=== PATIENT | female | born 1975 | race Caucasian/White ===

== ENCOUNTER 2018-06-27 20:45 | Inpatient (IN) | payer BC ==
[2018-06-27] MEDS ORDERED: OXYTOCIN 30 UNITS in 0.9% NS 30 UNIT/500 ML INFUS.BAG IVPB ONE (21:14)
--- NOTE | 2018-06-27 21:28 | HP ---
Past Medical History - Primary Care Physician PCP:: Mago Baron - Admission Chief Complaint: 43yo P0 @ 40.3wks with LOF, brown in color, at 8pm. + FM, no VB, some cramping History of Present Illness: 1. AMA 2. Factor V liden - was on ASA early in 3. 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 Pituitary microadenoma - off Cabergoline, early in History Source: Patient, Medical Record Limitations to Obtaining History: No Limitations - Past Medical History ...: 2 ...Spon : 1 ... Weeks Gestation by Dates: 40.3 ...EDC by Dates: 06/24/18 Heme/Onc: Yes: Other (Factor V Leiden Heterozygous, no VTE/DVT) - Past Surgical History Past Surgical History: Yes: None Hx Myomectomy: No Hx Transabdominal Cerclage: No - Smoking History Smoking history: Never smoked Have you smoked in the past 12 months: No - Alcohol/Substance Use Hx Alcohol Use: Yes (SOCIALLY) History of Substance Use: reports: None - Social History Usual Living Arrangement: Yes: With Spouse Occupation: Teacher History of Recent Travel: No Home Medications - Allergies Allergies/Adverse Reactions: Allergies Allergy/AdvReac Type Severity Reaction Status Date / Time Penicillins Allergy Intermediate Verified 06/27/18 23:26 - Home Medications Home Medications: Ambulatory Orders Pnv,Calcium 72/Iron/Folic Acid [ Plus Tablet] 1 each PO DAILY 06/07/18 Vit D3/Folic Acid/B2/B6/B12 [Folgard Tablet] 1 each PO DAILY 06/07/18 Review of Systems - Review of Systems Constitutional: reports: No Symptoms Eyes: reports: No Symptoms HENT: reports: No Symptoms Neck: reports: No Symptoms Cardiovascular: reports: No Symptoms Respiratory: reports: No Symptoms Gastrointestinal: reports: No Symptoms Genitourinary: reports: No Symptoms Breasts: reports: No Symptoms Reported Musculoskeletal: reports: No Symptoms Integumentary: reports: No Symptoms Neurological: reports: No Symptoms Endocrine: reports: No Symptoms Hematology/Lymphatic: reports: No Symptoms Psychiatric: reports: No Symptoms Pain Intensity: 0 Physical Exam - Maternity Constitutional: Yes: Well Nourished, No Distress, Calm Eyes: Yes: WNL, Conjunctiva Clear, EOM Intact HENT: Yes: WNL, Atraumatic, Normocephalic Neck: Yes: WNL, Supple, Trachea Midline Cardiovascular: Yes: WNL, Regular Rate and Rhythm Lungs: Clear to auscultation Breast(s): Yes: WNL - Abdominal Exam/OB Fundal Height: 40 (EFW - 3500gm) Number of Fetuses: Single Presentation: Vertex Contractions: No Regularity: Irritability Monitor Mode: External Heart Rate (range): 140, + accels, no decels Heart Rate Location: Midline Category: I Accelerations: Uniform Decelerations: None - Vaginal Exam/OB Vaginal Bleediing: No Speculum Exam: No (Adequate pelvis) Dilatation (cm): 1-2 Effacement (%): 50% Amniotic Membrane Status: Ruptured Nitrazine Test: Positive Amniotic Fluid: Yes: Meconium Stained Meconium: Moderate Presentation: Vertex/Position Station: -3 - Physical Exam Musculoskeletal: Yes: WNL Extremities: Yes: WNL Edema: No Integumentary: Yes: WNL ...Motor Strength: WNL Psychiatric: Yes: WNL, Alert, Oriented Assessment/Plan 43yo P0 @ 40.3wks with PROM not in labor with mod. meconium MF status reassuring will start Pitocin Induction Pain management discussed, she would be interested in pain medication All findings and plan discussed with patient and will attempt vaginal delivery as long as status reassuring Will ask Neonatalogy at delivery
[2018-06-27 21:45] LABS: BASO % 0.5 % (0-2.0); EOS % 0.7 % (0-4.5); HEMATOCRIT 38.8 % (32.4-45.2); HEMOGLOBIN 13.2 GM/dL (10.7-15.3); LYMPH % 13.8 % (8-40); MCH 32.1 pg (25.7-33.7); MCHC 34.1 g/dl (32.0-36.0); MEAN CELL VOLUME 93.9 fl (80-96); MEAN PLT VOLUME 9.8 fl (7.5-11.1); MONO % 9.4 % (3.8-10.2); NEUT % 75.6 % (42.8-82.8); PLATELET COUNT 153 K/MM3 (134-434); RBC 4.13 M/mm3 (3.60-5.2); RDW 14.4 % (11.6-15.6); WHITE BLOOD COUNT 11.3 K/mm3 (4.0-10.0)
[2018-06-27] MEDS ORDERED: PROMETHAZINE HCL 25 MG/1 ML VIAL IVPUSH ONE (21:58)
[2018-06-27] MEDS ORDERED: BUTORPHANOL TARTRATE 1 MG/ML VIAL IVPB ONE (21:58)
[2018-06-27] MEDS ORDERED: ELECTROLYTE-148 SOLN 1,000 ML IV SCH (22:00)
[2018-06-27 22:05] LABS: INR 0.97 (0.83-1.09)
[2018-06-27 22:15] LABS: ANION GAP 11 MMOL/L (8-16); BLOOD UREA NITROGEN 11 mg/dL (7-18); CHLORIDE 107 mmol/L (98-107); CO2 20 mmol/L (21-32); CREATININE 0.3 mg/dL (0.55-1.02); GLUCOSE,RANDOM 86 mg/dL (74-106); POTASSIUM 3.8 mmol/L (3.5-5.1); SODIUM 138 mmol/L (136-145)
[2018-06-27] MEDS ORDERED: OXYTOCIN 30 UNITS in 0.9% NS 30 UNIT/500 ML INFUS.BAG IVPB SCH (22:15)
[2018-06-27 23:12] VITALS: BMI 31.8
[2018-06-28] MEDS ORDERED: PROMETHAZINE HCL 25 MG/1 ML VIAL ONE (02:38)
[2018-06-28] MEDS ORDERED: BUTORPHANOL TARTRATE 1 MG/ML VIAL ONE ×2 (02:38)
[2018-06-28] MEDS ORDERED: FENTANYL/BUPIVACAINE/NS/PF - PCEA - 50 ML DISP.SYRIN EP ONE ×2 (05:30→10:37)
--- NOTE | 2018-06-28 05:32 | PN ---
Progress Note, Labor Vaginal Exam #1 Labor Exam Date: 06/28/18 Labor Exam Time: 05:20 Heart Rate (range): 150's + accels, no decels, adequate pelvis Dilatation: 4cm Effacement (%): 90 Amniotic Membrane Status: Ruptured Presentation: Vertex/Position Station: -2 (EFW 3500gm) Remarks: FHR Category 1, desiring epidural, anesthesia is called
[2018-06-28] MEDS ORDERED: BUPIVACAINE HCL/PF 0.25% (2.5MG/ML) 10 ML VIAL ONE (05:40)
[2018-06-28] MEDS ORDERED: NALOXONE HCL 0.4 MG/ML VIAL IVPUSH PRN (06:10)
[2018-06-28] MEDS ORDERED: FENTANYL/BUPIVACAINE/NS/PF - PCEA - 50 ML DISP.SYRIN EP SCH (06:15)
--- NOTE | 2018-06-28 10:07 | PN ---
Ante-Partal Exam - Subjective Subjective: Pt w/o complaints, w/epidural. Pit at 11 Vital Signs: Vital Signs Temperature 98.9 F 06/28/18 09:15 Pulse Rate 109 H 06/28/18 09:00 Respiratory Rate 18 06/28/18 09:00 Blood Pressure 113/74 06/28/18 09:00 O2 Sat by Pulse Oximetry (%) 97 06/28/18 09:00 Bleeding: No Headache: No Visual changes: No Right upper quadrant pain: No Pain (scale 1-10): 0 - Contractions Contractions: Yes Regularity: Regular Monitor Mode: External - Exam during Labor Heart Rate: 140 Variability: Moderate Heart Rate Location: Midline Category: II Monitor Accelerations: Present Monitor Decelerations: Variable (occasional) Exam: Vaginal Dilatation (cm): 9 Effacement (%): 100 Amniotic Membrane Status: Leaking Meconium Staining: Moderate Presentation: Vertex Station: 0 - Intrapartum Hemorrhage Risk Medium Risk Factors: None High Risk Factors: None Risk Score: 0 Risk Level: Low Risk - Assessment/Plan Assessment/Plan: 43 yo in active labor, progressing. Fetus requires no intervention. Monitor progress
[2018-06-28] MEDS ORDERED: ACETAMINOPHEN INJECTION 100 ML IVPB ONE (12:13)
[2018-06-28] MEDS ORDERED: ACETAMINOPHEN 1000 MG/100 ML VIAL (NON FORMULARY) IVPB ONE (12:15)
[2018-06-28] MEDS ORDERED: OXYTOCIN 20 UNITS in 0.9% NS 20 UNIT/1,000 ML INFUS.BAG IV ONE ×2 (12:19→19:40)
[2018-06-28] MEDS ORDERED: LIDOCAINE HCL 1% PRESERVATIVE FREE - 30ML VIAL ONE (12:19)
[2018-06-28] MEDS ORDERED: VANCOMYCIN 1,000 MG in DEXTROSE 5%-WATER - 250 ML IVPB ONE (12:30)
--- NOTE | 2018-06-28 13:09 | PN ---
Ante-Partal Exam - Subjective Subjective: No complaints. She does not feel contractions and pushing ineffectively. Vital Signs: Vital Signs Temperature 101.1 F H 06/28/18 12:05 Pulse Rate 116 H 06/28/18 12:00 Respiratory Rate 06/28/18 12:00 Blood Pressure 114/70 06/28/18 12:00 O2 Sat by Pulse Oximetry (%) 96 06/28/18 12:00 Bleeding: No Headache: No Right upper quadrant pain: No Pain (scale 1-10): 0 - Contractions Contractions: Yes Regularity: Regular Intensity: Moderate Monitor Mode: External - Exam during Labor Heart Rate: 175 Variability: Moderate Heart Rate Location: Midline Category: II (Tachcardia due to chorio) Monitor Accelerations: Absent Monitor Decelerations: None Exam: Vaginal Dilatation (cm): 10 Effacement (%): 100 Amniotic Membrane Status: Leaking Meconium Staining: Moderate Presentation: Vertex Station: +1 Remarks: Adequate pelvimetry - Intrapartum Hemorrhage Risk Medium Risk Factors: Chorioamniomitis High Risk Factors: None Risk Score: 1 Risk Level: Medium Risk - Assessment/Plan Assessment/Plan: 43yo P0 with at EGA 40w 5d in second stage of labor. 1. Fetus with tachycardia due to chorio but o/w does not need intervention. Tylenol IV given. Abx are running 2. Chorio. Neonatology to delivery 3. Labor. Pt is unable to push since she feels no pain, contractions, or urge to push. Epidural was turned off. Plan to start pushing again 4. Patient. Fever and tachycardia due to chorio; o/w no issues. Continue Abx
[2018-06-28] MEDS ORDERED: GENTAMICIN 100 MG/100 ML BAG IVPB ONE (13:15)
[2018-06-28] MEDS ORDERED: CLINDAMYCIN 900 MG PREMIX IVPB 900 MG/50 ML BAG IVPB ONE (13:15)
[2018-06-28] MEDS ORDERED: CLINDAMYCIN PHOSPHATE 600 MG/4 ML VIAL ONE (14:06)
[2018-06-28] MEDS ORDERED: morphine SULFATE/Preservative Free 0.5 MG/ML (1cc Syringe) ONE (17:51)
[2018-06-28] MEDS ORDERED: PHENYLEPHRINE HCL 10 MG/1 ML SINGLE DOSE VIAL ONE (18:06)
[2018-06-28] MEDS ORDERED: OXYTOCIN 10 UNITS/ML VIAL ONE ×2 (18:19→18:45)
[2018-06-28] MEDS ORDERED: MIDAZOLAM HCL 2 MG/2 ML SINGLE DOSE VIAL ONE ×2 (18:35→18:51)
[2018-06-28] MEDS ORDERED: MEPERIDINE HCL CARPU-JECT 25 MG/1 ML DISP.SYRIN ONE (18:36)
[2018-06-28] MEDS ORDERED: ONDANSETRON 4 MG/2 ML VIAL IVPUSH PRN (18:44)
[2018-06-28] MEDS ORDERED: KETOROLAC TROMETHAMINE 30 MG/1 ML VIAL ONE (18:48)
[2018-06-28 18:56] LABS: VENOUS PC02 40.5 mmHg (38-52); VENOUS PH 7.27 (7.32-7.42); VENOUS PO2 25.9 mmHg (28-48)
[2018-06-28] MEDS ORDERED: morphine SULFATE/Preservative Free 0.5 MG/ML (1cc Syringe) EP ONE (19:00)
[2018-06-28] MEDS ORDERED: BENZOCAINE 28 GM HEMORRHOIDAL OINTMENT TP PRN (19:36)
[2018-06-28] MEDS ORDERED: WITCH HAZEL 50% (TUCKS) 40 PAD/JAR PAD TP PRN (19:36)
[2018-06-28] MEDS ORDERED: METHYLERGONOVINE MALEATE 0.2 MG/1 ML AMP IM PRN (19:36)
[2018-06-28] MEDS ORDERED: BENZOCAINE 20% 57 GM BOTTLE TP PRN (19:36)
[2018-06-28] MEDS ORDERED: IBUPROFEN 800 MG/8 ML IJ IVPB PRN (19:36)
--- NOTE | 2018-06-28 19:36 | OP ---
Operative Note - Note: Operative Date: 06/28/18 Pre-Operative Diagnosis: Arrest of descent. AMA. Chorioamnitis Operation: Primary LT C/S Findings: Live baby girl in vtx presentation. Meconium in amniotic fluid. 9/9. Wt 8lb 4oz. Normal uterus, ovaries, tubes. Post-Operative Diagnosis: Same as Pre-op Surgeon: Puma Monge Model Technician: Eleno Covarrubias Anesthesiologist/LAUNDRY FOLDER: Power Kelley Anesthesia: Spinal Specimens Removed: Placenta Estimated Blood Loss (mls): 1,000 Drains & Tubes with Location: Albert Cath Drains, Volume Out (mls): 100 Blood Volume Replaced (mls): 0 Fluid Volume Replaced (mls): 2,500 Operative Report Dictated: Yes
[2018-06-28] MEDS ORDERED: CITRIC ACID/SODIUM CITRATE 30 ML UNIT-DOSE CUP PO ONE (19:45)
[2018-06-28] MEDS ORDERED: OXYTOCIN 20 UNITS in 0.9% NS 20 UNIT/1,000 ML INFUS.BAG IV SCH (20:00)
[2018-06-28 20:47] LABS: HEMATOCRIT 35.4 % (32.4-45.2); HEMOGLOBIN 11.9 GM/dL (10.7-15.3); MCHC 33.7 g/dl (32.0-36.0); MEAN CELL VOLUME 94.9 fl (80-96); MEAN PLT VOLUME 9.7 fl (7.5-11.1); PLATELET COUNT 131 K/MM3 (134-434); RBC 3.73 M/mm3 (3.60-5.2); RDW 14.4 % (11.6-15.6); WHITE BLOOD COUNT 22.7 K/mm3 (4.0-10.0)
--- NOTE | 2018-06-28 21:02 | PN ---
Post Progress Note - Subjective Subjective: Heavy vaginal bleeding noted in Recovery Rm. The pt is asymptomatic. Post Day: 0 Type of Delivery: Primary C/S Vital Signs: Vital Signs Temperature 98.9 F 06/28/18 19:35 Pulse Rate 116 H 06/28/18 20:20 Respiratory Rate 18 06/28/18 20:20 Blood Pressure 109/66 06/28/18 20:20 O2 Sat by Pulse Oximetry (%) 99 06/28/18 20:20 Uterus: Yes: Fundus above umbilicus, Other (Uterine Atony) Incision: Yes: Dressing dry and intact Abdomen/GI: Yes: Abdomen soft Lochia, amount: Heavy Extremities: Yes: Calves non-tender Perineum: Yes: Intact Activity: Other (Bedrest) - Labs Labs: CBC WBC 22.7 K/mm3 (4.0-10.0) H 06/28/18 20:10 RBC 3.73 M/mm3 (3.60-5.2) 06/28/18 20:10 Hgb 11.9 GM/dL (10.7-15.3) 06/28/18 20:10 Hct 35.4 % (32.4-45.2) 06/28/18 20:10 MCV 94.9 fl (80-96) 06/28/18 20:10 MCH 32.0 pg (25.7-33.7) 06/28/18 20:10 MCHC 33.7 g/dl (32.0-36.0) 06/28/18 20:10 RDW 14.4 % (11.6-15.6) 06/28/18 20:10 Plt Count 131 K/MM3 (134-434) L 06/28/18 20:10 MPV 9.7 fl (7.5-11.1) 06/28/18 20:10 Absolute Neuts (auto) 8.5 K/mm3 (1.5-8.0) H 06/27/18 21:20 Neutrophils % 75.6 % (42.8-82.8) D 06/27/18 21:20 Lymphocytes % 13.8 % (8-40) D 06/27/18 21:20 Monocytes % 9.4 % (3.8-10.2) 06/27/18 21:20 Eosinophils % 0.7 % (0-4.5) D 06/27/18 21:20 Basophils % 0.5 % (0-2.0) 06/27/18 21:20 Nucleated RBC % 0 % (0-0) 06/27/18 21:20 Other Findings, Remarks: Pt with uterine atony. Pt with Tachycardia but is o/w stable. Bimanual uterine massage done and ~100ml of clots evacuated. The uterus noted to be firm after the bimanual massage and hemostasis improved. The pt was given Methergine IM x 1. The CBC was sent earlier and the results were reviewed. Plan to monitor bleeding and VS
[2018-06-28 21:17] LABS: ALBUMIN 2.2 g/dl (3.4-5.0); ALK PHOS 110 U/L (45-117); ANION GAP 14 MMOL/L (8-16); BILIRUBIN,TOTAL 2.2 mg/dL (0.2-1.0); BLOOD UREA NITROGEN 9 mg/dL (7-18); CALCIUM 7.9 mg/dL (8.5-10.1); CHLORIDE 109 mmol/L (98-107); CO2 15 mmol/L (21-32); CREATININE 0.5 mg/dL (0.55-1.02); GLUCOSE,RANDOM 119 mg/dL (74-106); POTASSIUM 3.3 mmol/L (3.5-5.1); SGOT/AST 27 U/L (15-37); SGPT/ALT 44 U/L (12-78); SODIUM 138 mmol/L (136-145); TOT PROT 4.9 g/dl (6.4-8.2)
[2018-06-28] MEDS: CLINDAMYCIN 900 MG PREMIX IVPB 900 MG/50 ML BAG IVPB SCH (22:03)
[2018-06-29 00:19] LABS: BASO % 0.1 % (0-2.0); HEMATOCRIT 32.9 % (32.4-45.2); HEMOGLOBIN 11.2 GM/dL (10.7-15.3); LYMPH % 2.2 % (8-40); MCH 32.3 pg (25.7-33.7); MCHC 34.1 g/dl (32.0-36.0); MEAN CELL VOLUME 94.6 fl (80-96); MEAN PLT VOLUME 9.2 fl (7.5-11.1); MONO % 8.6 % (3.8-10.2); NEUT % 89.1 % (42.8-82.8); PLATELET COUNT 141 K/MM3 (134-434); RBC 3.47 M/mm3 (3.60-5.2); RDW 14.5 % (11.6-15.6); WHITE BLOOD COUNT 25.1 K/mm3 (4.0-10.0)
[2018-06-29] MEDS: VANCOMYCIN 1,000 MG in DEXTROSE 5%-WATER - 250 ML IVPB SCH ×2 (00:50→12:55)
[2018-06-29 01:03] LABS: PLATELET ESTIMATE SLT DECREASE
--- NOTE | 2018-06-29 01:38 | OP ---
DATE OF OPERATION: 06/28/2018 PREOPERATIVE DIAGNOSIS: at estimated gestational age of 40 weeks 5 days, arrest of descent, advanced maternal age, chorioamnionitis. POSTOPERATIVE DIAGNOSIS: at estimated gestational age of 40 weeks 5 days, arrest of descent, advanced maternal age, chorioamnionitis, delivered. PROCEDURE: Primary low transverse section via Pfannenstiel skin incision. SURGEON: Puma Monge MD BRANCH LENDING OFFICER: Eleno Covarrubias MD ANESTHESIA: Spinal. ANESTHESIOLOGIST: Lex Kelley MD COMPLICATIONS: None. ESTIMATED BLOOD LOSS: 1000 mL. INTRAVENOUS FLUIDS: 2500 mL of Crystalloid. URINE OUTPUT: 100 mL of dark blood-tinged urine. PATHOLOGY: Placenta. FINDINGS: Live baby girl in vertex presentation. Meconium was noted in amniotic fluid. Apgars are 9 and 9. Baby's weight is 8 pounds 4 ounces. Normal uterus, ovaries, and fallopian tubes were noted bilaterally. PROCEDURE: The patient was met preoperatively. Risks, benefits, and alternatives of surgery were discussed in detail. All questions were answered. The patient was brought to the OR with IV running. She was placed on the surgical table in the sitting position. The spinal anesthesia was achieved without difficulty. The patient was then placed on a surgical table with a leftward tilt. The Albert catheter was left to drain to gravity. The patient was prepped and draped in the usual sterile fashion. A Pfannenstiel skin incision was made with the knife approximately 2 cm above the pubic symphysis. The incision was extended to the level of fascia. The fascia was incised in the midline and the incision was extended bilaterally using Huitron scissors. The fascia was dissected away from the rectus muscles superiorly and inferiorly. The rectus muscles were in the midline using blunt dissection. The peritoneum was identified and entered sharply. The peritoneal incision was extended superiorly and inferiorly using Metzenbaum scissors. The bladder was identified and the bladder peritoneum was incised in the area of low transverse uterine segment. The bladder was dissected away from the uterine segment and reflected downwards. The lower uterine segment was incised transversely and the incision was extended bilaterally using bandage scissors. The baby was delivered from the vertex presentation without complications. The umbilical cord was clamped and cut. The baby was crying spontaneously. Live baby girl was handed to the awaiting still operator helper. A segment of the umbilical cord was secured for umbilical cord blood gasses. The placenta was expressed manually from the uterus without complications. The placenta was sent to Pathology. The uterus was cleared of all clots and debris using laparotomy laps. The uterine incision was repaired using a 0 Biosyn suture with a running locking stitch. Good hemostasis was noted. The uterine incision was then imbricated using a 0 Biosyn suture with good hemostasis and approximation. Uterine atony was noted intraoperatively and the uterus was massaged and contracted well. As a result of uterine atony, excessive bleeding was encountered during the closure of the uterine incision. However, once the incision was closed, good hemostasis was noted. The uterus was once again observed to be well contracted. The bladder peritoneum was reapproximated using a 0 Biosyn suture. The gutters were cleared of all clots and debris. The operative site was irrigated using copious amounts of normal saline. Once the saline was aspirated, good hemostasis was confirmed. The abdominal peritoneum was then repaired using a 2-0 chromic suture. The rectus muscles were approximated in the midline using several interrupted 2-0 chromic sutures. The fascia was closed using a 0 Vicryl suture with a running stitch in 2 segments. The subcutaneous adipose tissues and Steven fascia were approximated using several interrupted 0 Vicryl sutures. The skin was closed using a 4-0 Vicryl suture with the subcutaneous stitch. Sponge, lap, and needle counts were correct. The patient tolerated the procedure well. Once again, uterine atony was noted before transferring the patient into the recovery room. The uterus was massaged. Some blood clots were expressed and the uterus was noted to be firm. At that point, the patient was transferred to the recovery room, awake, and in stable condition. Giulia [id number]
[2018-06-29] MEDS: CLINDAMYCIN 900 MG PREMIX IVPB 900 MG/50 ML BAG IVPB SCH ×3 (02:59→17:07)
[2018-06-29] MEDS: GENTAMICIN INJECTION 100 MG in DEXTROSE 5%-WATER - 100 ML IVPB SCH ×3 (03:39→18:08)
[2018-06-29 08:07] LABS: BASO % 0.1 % (0-2.0); HEMATOCRIT 29.2 % (32.4-45.2); HEMOGLOBIN 9.9 GM/dL (10.7-15.3); LYMPH % 3.5 % (8-40); MCH 31.6 pg (25.7-33.7); MCHC 33.8 g/dl (32.0-36.0); MEAN CELL VOLUME 93.5 fl (80-96); MEAN PLT VOLUME 8.9 fl (7.5-11.1); MONO % 10.2 % (3.8-10.2); NEUT % 86.2 % (42.8-82.8); PLATELET COUNT 131 K/MM3 (134-434); RBC 3.12 M/mm3 (3.60-5.2); RDW 14.6 % (11.6-15.6); WHITE BLOOD COUNT 25.8 K/mm3 (4.0-10.0)
--- NOTE | 2018-06-29 09:02 | PN ---
Post Progress Note - Subjective Subjective: No complaints, feels well, no fever or chills Post Day: 1 Type of Delivery: Primary C/S Vital Signs: Vital Signs Temperature 97.8 F 06/29/18 06:00 Pulse Rate 101 H 06/29/18 06:00 Respiratory Rate 20 06/29/18 06:00 Blood Pressure 93/50 06/29/18 06:00 O2 Sat by Pulse Oximetry (%) 99 06/28/18 20:20 Breast Exam: Yes: Soft Uterus: Yes: Fundus Firm, Fundus @ umbilicus, Non-tender Incision: Yes: Dressing dry and intact Abdomen/GI: Yes: Abdomen soft, Tolerating PO (fluids) Lochia: Yes: Rubra Lochia, amount: Small Extremities: Yes: Calves non-tender Perineum: Yes: Intact (swollen) Activity: Other (in bed) - Labs Labs: CBC WBC 25.8 K/mm3 (4.0-10.0) H 06/29/18 07:15 RBC 3.12 M/mm3 (3.60-5.2) L 06/29/18 07:15 Hgb 9.9 GM/dL (10.7-15.3) L 06/29/18 07:15 Hct 29.2 % (32.4-45.2) L 06/29/18 07:15 MCV 93.5 fl (80-96) 06/29/18 07:15 MCH 31.6 pg (25.7-33.7) 06/29/18 07:15 MCHC 33.8 g/dl (32.0-36.0) 06/29/18 07:15 RDW 14.6 % (11.6-15.6) 06/29/18 07:15 Plt Count 131 K/MM3 (134-434) L 06/29/18 07:15 MPV 8.9 fl (7.5-11.1) 06/29/18 07:15 Absolute Neuts (auto) 22.2 K/mm3 (1.5-8.0) H 06/29/18 07:15 Total Counted 100 06/29/18 00:05 Neutrophils % 86.2 % (42.8-82.8) H 06/29/18 07:15 Neutrophils % (Manual) 86.0 % (42.8-82.8) H 06/29/18 00:05 Band Neutrophils % 5.0 % 06/29/18 00:05 Lymphocytes % 3.5 % (8-40) L D 06/29/18 07:15 Lymphocytes % (Manual) 4.0 % (8-40) L 06/29/18 00:05 Monocytes % 10.2 % (3.8-10.2) 06/29/18 07:15 Monocytes % (Manual) 5 % (3.8-10.2) 06/29/18 00:05 Eosinophils % 0.0 % (0-4.5) 06/29/18 07:15 Basophils % 0.1 % (0-2.0) 06/29/18 07:15 Nucleated RBC % 0 % (0-0) 06/29/18 07:15 Platelet Estimate Slt decrease 06/29/18 00:05 Platelet Comment No clumping noted 06/29/18 00:05 Assessment/Plan 43yo P1 POD#1, s/p primary LT C/S pt is doing well, afebrile. Asymptomatic for anemia but tachy Plan to continue IV abx x 24hrs Ambulate Start Lovenox
[2018-06-29] MEDS: ENOXAPARIN NA (PORCINE) 40 MG/0.4 ML DISP.SYRIN SQ SCH (10:00)
[2018-06-29 10:19] LABS: ANISOCYTOSIS 1+; MACROCYTOSIS 1+
[2018-06-29] MEDS: SIMETHICONE 80 MG TAB.CHEW (FP) PO PRN ×2 (11:10→17:19)
[2018-06-29] MEDS: IBUPROFEN 600 MG TABLET (FP) PO PRN ×2 (11:10→17:19)
[2018-06-29] MEDS: ACETAMINOPHEN 325 MG TABLET (FP) PO PRN ×2 (11:12→17:20)
[2018-06-29 12:17] LABS: PLATELET ESTIMATE ADEQUATE
--- NOTE | 2018-06-29 12:40 | PN ---
Progress Note (short form) - Note Progress Note: Anesthesia POD#1 S/P C- Section under spinal and Duramorph VSS,no N/V,pain is mild,legs are strong. Oanh Jackson MD.
[2018-06-29] MEDS: PRENATAL VITAMINS W/ FOLIC ACID TABLET (FP) PO SCH (16:11)
[2018-06-29] MEDS: oxyCODONE HCL 5 MG TABLET PO PRN (19:33)
[2018-06-29] MEDS: SENNOSIDES/DOCUSATE COMBO (SENNA PLUS) TABLET (UD) PO PRN (19:33)
[2018-06-29] MEDS ORDERED: BISACODYL 10 MG SUPP.RECT RC PRN (19:36)
[2018-06-30] MEDS: VANCOMYCIN 1,000 MG in DEXTROSE 5%-WATER - 250 ML IVPB SCH ×2 (00:58→12:39)
[2018-06-30] MEDS: SIMETHICONE 80 MG TAB.CHEW (FP) PO PRN ×4 (00:58→22:57)
[2018-06-30] MEDS: ACETAMINOPHEN 325 MG TABLET (FP) PO PRN (00:58)
[2018-06-30] MEDS: IBUPROFEN 600 MG TABLET (FP) PO PRN ×5 (01:00→22:58)
[2018-06-30] MEDS: CLINDAMYCIN 900 MG PREMIX IVPB 900 MG/50 ML BAG IVPB SCH ×3 (02:02→17:53)
[2018-06-30] MEDS: GENTAMICIN INJECTION 100 MG in DEXTROSE 5%-WATER - 100 ML IVPB SCH ×2 (03:00→10:57)
[2018-06-30] MEDS: oxyCODONE HCL 5 MG TABLET PO PRN ×6 (03:45→22:58)
--- NOTE | 2018-06-30 04:31 | PN ---
Post Progress Note - Subjective Subjective: Patient without acute complaints. Reports tolerating clears without nausea or vomiting. Ambulating without dizziness. Denies fevers or chills. Pain well controlled with oral pain medication. without difficulty. Passing flatus. Post Day: 2 Type of Delivery: Primary C/S Vital Signs: Vital Signs Temperature 97.5 F L 06/30/18 01:46 Pulse Rate 86 06/30/18 01:46 Respiratory Rate 20 06/30/18 01:46 Blood Pressure 88/60 06/30/18 01:46 O2 Sat by Pulse Oximetry (%) 99 06/28/18 20:20 Breast Exam: Yes: Soft Uterus: Yes: Fundus Firm Incision: Yes: Dressing dry and intact Abdomen/GI: Yes: Abdomen soft, Tender (mild incisional), Passing flatus, Tolerating PO Lochia: Yes: Serosa Lochia, amount: Small Extremities: Yes: Calves non-tender, Edema Activity: Ambulating - Labs Labs: CBC WBC 25.8 K/mm3 (4.0-10.0) H 06/29/18 07:15 RBC 3.12 M/mm3 (3.60-5.2) L 06/29/18 07:15 Hgb 9.9 GM/dL (10.7-15.3) L 06/29/18 07:15 Hct 29.2 % (32.4-45.2) L 06/29/18 07:15 MCV 93.5 fl (80-96) 06/29/18 07:15 MCH 31.6 pg (25.7-33.7) 06/29/18 07:15 MCHC 33.8 g/dl (32.0-36.0) 06/29/18 07:15 RDW 14.6 % (11.6-15.6) 06/29/18 07:15 Plt Count 131 K/MM3 (134-434) L 06/29/18 07:15 MPV 8.9 fl (7.5-11.1) 06/29/18 07:15 Absolute Neuts (auto) 22.2 K/mm3 (1.5-8.0) H 06/29/18 07:15 Total Counted 100 06/29/18 00:05 Neutrophils % 86.2 % (42.8-82.8) H 06/29/18 07:15 Neutrophils % (Manual) 71.0 % (42.8-82.8) 06/29/18 07:15 Band Neutrophils % 12.0 % 06/29/18 07:15 Lymphocytes % 3.5 % (8-40) L D 06/29/18 07:15 Lymphocytes % (Manual) 4.0 % (8-40) L 06/29/18 07:15 Monocytes % 10.2 % (3.8-10.2) 06/29/18 07:15 Monocytes % (Manual) 13 % (3.8-10.2) H D 06/29/18 07:15 Eosinophils % 0.0 % (0-4.5) 06/29/18 07:15 Eosinophils % (Manual) 0.0 % (0-4.5) 06/29/18 07:15 Basophils % 0.1 % (0-2.0) 06/29/18 07:15 Basophils % (Manual) 0.0 % (0-2.0) 06/29/18 07:15 Myelocytes % (Man) 0 % (0-2) 06/29/18 07:15 Promyelocytes % (Man) 0 % (0-2) 06/29/18 07:15 Blast Cells % (Manual) 0 % (0-0) 06/29/18 07:15 Nucleated RBC % 0 % (0-0) 06/29/18 07:15 Metamyelocytes 0 % (0-2) 06/29/18 07:15 Hypochromia 0 06/29/18 07:15 Platelet Estimate Adequate 06/29/18 07:15 Platelet Comment No clumping noted 06/29/18 00:05 Polychromasia 2+ 06/29/18 07:15 Poikilocytosis 0 06/29/18 07:15 Anisocytosis 1+ 06/29/18 07:15 Microcytosis 0 06/29/18 07:15 Macrocytosis 1+ 06/29/18 07:15 Assessment/Plan 43 yo POD #2 s/p primary CD, afebrile, vital signs stable 1. Mild tachycardia noted POD #1 now resolved patient asymptaomtic 2. Mild anemia noted - patient denies symptoms encouraged ferrous sulfate BID 3. Will advance diet as tolerated 4. Continue routine postoperative care. 5. Encourage ambulation and incentive spirometer use 6. Continue oral pain medication 7. Anticipate discharge home postoperative day #3 or #4
[2018-06-30] MEDS: PRENATAL VITAMINS W/ FOLIC ACID TABLET (FP) PO SCH (10:00)
[2018-06-30] MEDS: ENOXAPARIN NA (PORCINE) 40 MG/0.4 ML DISP.SYRIN SQ SCH (10:57)
[2018-06-30 13:36] LABS: BASO % 0.1 % (0-2.0); EOS % 0.4 % (0-4.5); HEMATOCRIT 25.6 % (32.4-45.2); HEMOGLOBIN 8.6 GM/dL (10.7-15.3); LYMPH % 5.8 % (8-40); MCH 31.5 pg (25.7-33.7); MCHC 33.6 g/dl (32.0-36.0); MEAN CELL VOLUME 93.8 fl (80-96); MEAN PLT VOLUME 8.5 fl (7.5-11.1); MONO % 7.4 % (3.8-10.2); NEUT % 86.3 % (42.8-82.8); PLATELET COUNT 160 K/MM3 (134-434); RBC 2.73 M/mm3 (3.60-5.2); RDW 14.5 % (11.6-15.6); WHITE BLOOD COUNT 19.9 K/mm3 (4.0-10.0)
[2018-06-30] MEDS: SENNOSIDES/DOCUSATE COMBO (SENNA PLUS) TABLET (UD) PO PRN (22:58)
[2018-07-01 07:03] LABS: BASO % 0.2 % (0-2.0); EOS % 0.7 % (0-4.5); HEMATOCRIT 22.7 % (32.4-45.2); HEMOGLOBIN 7.7 GM/dL (10.7-15.3); LYMPH % 8.6 % (8-40); MCH 31.6 pg (25.7-33.7); MEAN PLT VOLUME 8.5 fl (7.5-11.1); MONO % 7.3 % (3.8-10.2); NEUT % 83.2 % (42.8-82.8); PLATELET COUNT 156 K/MM3 (134-434); RBC 2.44 M/mm3 (3.60-5.2); WHITE BLOOD COUNT 14.3 K/mm3 (4.0-10.0)
--- NOTE | 2018-07-01 08:29 | PN ---
Progress Note (short form) - Note Progress Note: pod 3 s/p c/s, chorio noc/o ,afebrile, ambulating, passing gas, no dizziness CBC, BMP 07/01/18 06:00 06/28/18 20:10 Last Vital Signs Temp Pulse Resp BP Pulse Ox 98.3 F 98 H 20 91/56 99 07/01/18 04:32 07/01/18 04:32 07/01/18 04:32 07/01/18 04:32 06/28/18 20:20 abdomen soft, no distension, no va incision dry, clean no excess vaginal bleeding no calf tenderness pod 3 afebrile . anemia, asymptomatic, wbc still elevated plan repeat cbc in am , revaluate iron, vit
[2018-07-01] MEDS: ACETAMINOPHEN 325 MG TABLET (FP) PO PRN ×3 (09:37→21:15)
[2018-07-01] MEDS: IBUPROFEN 600 MG TABLET (FP) PO PRN ×3 (09:39→21:15)
[2018-07-01] MEDS: PRENATAL VITAMINS W/ FOLIC ACID TABLET (FP) PO SCH (09:40)
[2018-07-01] MEDS: SIMETHICONE 80 MG TAB.CHEW (FP) PO PRN ×3 (09:40→21:14)
[2018-07-01] MEDS: ENOXAPARIN NA (PORCINE) 40 MG/0.4 ML DISP.SYRIN SQ SCH (09:40)
[2018-07-01 11:03] LABS: PLATELET ESTIMATE ADEQUATE; TARGET CELLS 1+
[2018-07-01] MEDS: SENNOSIDES/DOCUSATE COMBO (SENNA PLUS) TABLET (UD) PO PRN (21:15)
[2018-07-01] MEDS ORDERED: ASCORBIC ACID 500 MG TABLET (FP) PO SCH (22:00)
[2018-07-01] MEDS ORDERED: FERROUS SO4 325 MG TABLET (FP) PO SCH (22:00)
[2018-07-01 23:18] VITALS: PULSE 92
[2018-07-02] MEDS: ACETAMINOPHEN 325 MG TABLET (FP) PO PRN (07:08)
[2018-07-02] MEDS: SIMETHICONE 80 MG TAB.CHEW (FP) PO PRN (07:08)
[2018-07-02] MEDS: IBUPROFEN 600 MG TABLET (FP) PO PRN (07:09)
[2018-07-02 07:14] LABS: BASO % 0.3 % (0-2.0); HEMATOCRIT 25.6 % (32.4-45.2); HEMOGLOBIN 8.7 GM/dL (10.7-15.3); MCH 31.9 pg (25.7-33.7); MEAN CELL VOLUME 93.9 fl (80-96); MEAN PLT VOLUME 7.7 fl (7.5-11.1); MONO % 6.8 % (3.8-10.2); NEUT % 79.9 % (42.8-82.8); PLATELET COUNT 210 K/MM3 (134-434); RBC 2.73 M/mm3 (3.60-5.2); RDW 14.5 % (11.6-15.6); WHITE BLOOD COUNT 9.5 K/mm3 (4.0-10.0)
--- NOTE | 2018-07-02 07:52 | DS ---
Physical Exam-GEOSPATIAL PROGRAM MANAGEMENT OFFICER Vital Signs: Vital Signs Temperature 98.9 F 07/01/18 22:00 Pulse Rate 92 H 07/01/18 22:00 Respiratory Rate 18 07/01/18 22:00 Blood Pressure 111/62 07/01/18 22:00 O2 Sat by Pulse Oximetry (%) 99 06/28/18 20:20 Constitutional: Yes: Well Nourished, No Distress, Calm Eyes: Yes: WNL, Conjunctiva Clear, EOM Intact HENT: Yes: WNL, Atraumatic, Normocephalic Neck: Yes: WNL, Supple, Trachea Midline Cardiovascular: Yes: WNL, Regular Rate and Rhythm Respiratory: Yes: WNL, Regular, CTA Bilaterally Gastrointestinal: Yes: WNL, Normal Bowel Sounds, Soft Renal/: Yes: WNL Pelvis: Yes: WNL External Genitalia: Yes: Normal Vaginal Exam: Yes: Normal Uterus: Yes: Normal ....Post : Yes: Uterus firm, Uterus non-tender Breast(s): Yes: WNL Musculoskeletal: Yes: WNL Extremities: Yes: WNL Edema: Yes Edema: LUE: Trace, LLE: Trace Integumentary: Yes: WNL Wound/Incision: Yes: Clean/Dry, Well Approximated Neurological: Yes: WNL, Alert, Oriented ...Motor Strength: WNL Psychiatric: Yes: WNL, Alert, Oriented Labs: CBC, BMP 07/02/18 06:56 06/28/18 20:10 Delivery - Delivery Section: Primary Type of Anesthesia: Spinal Episiotomy/Laceration: None EBL (cc): 1,000 Delivery, Single - Stages of Labor Date 1st Stage Initiatied: 06/28/18 Time 1st Stage Initiated: 02:00 Date 2nd Stage Initiated: 06/28/18 Time 2nd Stage Initiated: 12:25 Date of Delivery: 06/28/18 Time of Delivery: 18:23 Time Placenta Delivered: 18:25 - Condition of Infant Inspector Repairer/J2Ee Programmer Present: Yes Name: Trino Hernandez Infant Gender: Female Weight: 8 lb 4 oz Position: Left, OT Total Hours ROM (Hrs/Mins): 22hrs/25mins - 1 Minute Total Score: 9 5 Minutes Total Score: 9 - [place] Feeding Plan Initial Plan: Exclusive throughout hospitalization Discharge Summary Reason For Visit: LABOR Procedures: Principal: Primary c/section Other Procedures: Labor induction Condition: Good - Instructions Diet, Activity, Other Instructions: return to office in 1 week for incision check and 6 weeks for check. call for appointment. Referrals: Puma Monge MD [Staff Physician] - Disposition: HOME - Home Medications Comprehensive Discharge Medication List: Ambulatory Orders Pnv,Calcium 72/Iron/Folic Acid [ Plus Tablet] 1 each PO DAILY 06/07/18 Vit D3/Folic Acid/B2/B6/B12 [Folgard Tablet] 1 each PO DAILY 06/07/18
[2018-07-02 08:53] LABS: ANION GAP 8 MMOL/L (8-16); BLOOD UREA NITROGEN 10 mg/dL (7-18); CHLORIDE 108 mmol/L (98-107); CO2 26 mmol/L (21-32); CREATININE 0.4 mg/dL (0.55-1.3); GLUCOSE,RANDOM 78 mg/dL (74-106); POTASSIUM 3.6 mmol/L (3.5-5.1); SODIUM 142 mmol/L (136-145)
[2018-07-02 09:06] VITALS: BP 114/73; TEMP 99
[2018-07-02] MEDS: ENOXAPARIN NA (PORCINE) 40 MG/0.4 ML DISP.SYRIN SQ SCH (09:25)
[2018-07-02] MEDS: PRENATAL VITAMINS W/ FOLIC ACID TABLET (FP) PO SCH (09:26)
[2018-07-02 13:16] LABS: PLATELET ESTIMATE ADEQUATE
--- NOTE | 2018-07-06 16:34 | PATH ---
Surgical Pathology Report Patient Name: [place] Med. Rec. #: [id number] /Age/Gender: 1975 (Age: 43) / F Account: [id number] Location: [facility] OBS/PSYCHOSOCIAL REHABILITATION COUNSELOR Taken: 06/28/2018 Received: 06/29/2018 Reported: 07/06/2018 Physicians: Giulia Gill M.D. Specimen(s) Received PLACENTA Clinical History , 40.5 weeks Arrest of descent, chorioamnionitis Final Diagnosis PLACENTA: THIRD TRIMESTER PLACENTA WITH ACUTE CHORIOAMNIONITIS. TRIVASCULAR CORD WITH ACUTE FUNISITIS. Electronically Signed Maribel Falk M.D. Gross Description The specimen is received fresh labeled placenta and is a 655 gram, 19.0 x 16.0 x 3.2 cm. placenta with attached membranes and umbilical cord. The attached membranes are chen green, meconium stained, translucent with focal opacities and insert marginally. The umbilical cord measures 14 cm. in length and averages 1 cm. in diameter. The cord inserts eccentrically, 6.5 cm. to the nearest margin. No true knots or strictures are identified. Cut surface of the umbilical cord reveals 3 vessels. The surface is jackson green, meconium stained with minimal fibrin deposition and appropriate caliber vessels. The maternal surface is red-brown with focal defects. Sectioning reveals red-brown, spongy parenchyma. No lesions are identified. Artificial Snow Making Machine Operator sections are submitted in three cassettes as follows: 1- membrane rolls and umbilical cord; 2-3- full thickness sections of placenta. 07/05/2018 [facility]07/05/2018
== END 2018-07-02 15:40 | disposition home or self-care (01) | DRG 765 ==
LOC: JLDR 20:45 → J3W 06-29 02:08
PROVIDERS: ADMIT Obstetrics & Gynecology; ATTEND Obstetrics & Gynecology
PROC: 10D00Z1 Extraction of Products of Conception, Low, Open Approach (ICD-10-PCS; principal; 2018-06-28)
DX: O48.0 Post-term pregnancy (principal); O41.1230 Chorioamnionitis, third trimester, not applicable or unspecified; O98.313 Other infections with a predominantly sexual mode of transmission complicating pregnancy, third trimester; O99.113 Other diseases of the blood and blood-forming organs and certain disorders involving the immune mechanism complicating pregnancy, third trimester; D68.51 Activated protein C resistance; O72.1 Other immediate postpartum hemorrhage; Z37.0 Single live birth; O32.4XX0 Maternal care for high head at term, not applicable or unspecified; O99.613 Diseases of the digestive system complicating pregnancy, third trimester; K80.20 Calculus of gallbladder without cholecystitis without obstruction; A63.0 Anogenital (venereal) warts; O26.893 Other specified pregnancy related conditions, third trimester; D35.2 Benign neoplasm of pituitary gland; E80.4 Gilbert syndrome; O77.0 Labor and delivery complicated by meconium in amniotic fluid; O99.02 Anemia complicating childbirth; D64.9 Anemia, unspecified; Z3A.40 40 weeks gestation of pregnancy
CPT/HCPCS: 36415; 80048; 80053; 82803; 85025; 85027; 85610; 85730; 86593; 86850; 86900; 86901; 87389; 88307-TC; J0131